=== PATIENT | male | born 1945 | race Caucasian/White ===

== ENCOUNTER 2017-10-23 15:22 | Emergency (ER) | payer MEDICARE ==
[~2017-10-23] VITALS: Wt 79.8 kg
[~2017-10-23 15:22] MED LIST: ASPIR 8181 MG PO; ASPIRIN81 M1 PO; BALANCED B-501 EACH PO; BIOTIN1000 MCG PO; CLARITIN10 MG PO; DIOVAN HCT 25 M1 TA2 PO; KLOR-CON 88 MEQ PO; METOPROLOL25 MG PO; MILK THISTLE PO; MILK THISTLE175 M1 PO; MILK THISTLE500 MG PO; PANTOPRAZOLE SO40 MG PO; PREVACID PO; PRILOSEC20 M1 PO; QUALAQUIN324 MG PO; QUININE SULFAT300 MG PO; SIMVASTATIN20 MG PO; SINGULAIR10 MG PO; [UNRECOGNIZED DRUG - OTHER] PO; [UNRECOGNIZED DRUG - OTHER] PO
[2017-10-23 16:05] LABS: BASO % 0.7 % (0.0-1.0); EOS # 0.1 10*3/uL (0.0-0.4); EOS % 2.4 % (1.0-4.0); HEMATOCRIT 39.9 % (42.0-52.0); HEMOGLOBIN 13.3 g/dl (14.0-18.0); LYMPH # 0.6 10*3/uL (1.3-4.4); LYMPH % 11.6 % (27.0-41.0); MEAN CELL VOLUME 85.8 fl (80.0-94.0); MEAN CORPUSCULAR HGB 28.6 pg (27.0-31.0); MEAN CORPUSCULAR HGB CONC 33.3 g/dl (33.0-37.0); MEAN PLATELET VOLUME 9.5 fl (9.6-12.3); MONO # 0.4 10*3/uL (0.1-1.0); MONO % 8.1 % (3.0-9.0); NEUT # 4.2 10*3/uL (2.3-7.9); NEUT % 76.5 % (47.0-73.0); PLATELET COUNT AUTOMATED 175 10*3/uL (130-400); RED BLOOD COUNT 4.65 10*6/uL (4.50-5.90); RED CELL DISTRI WIDTH 14.6 % (0-14.5); WHITE BLOOD COUNT 5.4 10*3/uL (4.8-10.8)
[2017-10-23 16:14] LABS: ACT PARTIAL THROMBO TIME 24.3 SECONDS (20.8-31.5)
[2017-10-23 16:23] LABS: ALKALINE PHOSPHATASE 90 U/L (45-117); BUN 26 mg/dl (7-24); CHLORIDE 102 mmol/L (98-107); CREATININE 1.52 mg/dL (0.70-1.30); LIPASE 165 U/L (73-393); POTASSIUM 4.1 mmol/L (3.5-5.1); SGOT/AST 32 IU/L (3-35); SGPT/ALT 39 U/L (12-78); SODIUM 135 mmol/L (136-145); TOTAL PROTEIN 6.9 gm/dL (6.4-8.2)
[2017-10-23 16:29] LABS: TROPONIN I < 0.015 ng/ml (<0.045)
[2017-10-23 17:18] LABS: BILIRUBIN NEGATIVE (NEGATIVE); BLOOD NEGATIVE (NEGATIVE); CLARITY CLEAR (CLEAR); COLOR YELLOW (YELLOW); GLUCOSE NEGATIVE (NEGATIVE); KETONE NEGATIVE (NEGATIVE); LEUKO ESTERASE NEGATIVE (NEGATIVE); NITRITE NEGATIVE (NEGATIVE); PH 6.5 (5.0-9.0); SPECIFIC GRAVITY 1.015 (1.005-1.030)
[2017-10-23 17:36] LABS: BACTERIA TRACE; EPITHELIAL CELLS 0-2; MUCOUS 1+; RBC 0-2 rbc/hpf (0-2)
== END 2017-10-23 18:20 | disposition home or self-care (01) ==
LOC: ED 15:22
PROVIDERS: Emergency Medicine
DX: R42 Dizziness and giddiness (principal); T50.905A Adverse effect of unspecified drugs, medicaments and biological substances, initial encounter; M54.9 Dorsalgia, unspecified; I10 Essential (primary) hypertension; Z88.6 Allergy status to analgesic agent; Z79.899 Other long term (current) drug therapy; Z79.82 Long term (current) use of aspirin; Y92.89 Other specified places as the place of occurrence of the external cause

== ENCOUNTER → 2018-01-19 | Outpatient (CLI) | payer MEDICARE ==
[2018-01-19 09:48] LABS: CHOLESTEROL 111 mg/dL (<200); HDL CHOLESTEROL 34 mg/dl (40-60); LDL CHOLESTEROL 66 mg/dL (9-159); TRIGLYCERIDES 54 mg/dl (<150); VLDL CHOLESTEROL 11 mg/dL (6-40)
== END | disposition home or self-care (01) ==
LOC: LAB 08:25
PROVIDERS: Family Medicine
DX: Z13.220 Encounter for screening for lipoid disorders (principal); Z79.899 Other long term (current) drug therapy

== ENCOUNTER 2019-05-11 22:04 | Inpatient (IN) | payer MEDICARE ==
[~2019-05-11] VITALS: Ht 172.7 cm; Wt 83.3 kg
[~2019-05-11 22:04] MED LIST changes: +ATIVAN1 MG PO; +CYCLOBENZAPRINE10 MG PO; +KLOR-CON 88 ME1 PO; -KLOR-CON 88 MEQ PO; +LOSARTAN POTASS25 M1 PO; +NEXAVAR200 M1 PO; +PROCHLORPERAZIN10 MG PO; +TAMSULOSIN HCL0.4 MG PO
[2019-05-11 22:05] VITALS: BP 159/76
[2019-05-11 23:28] LABS: ALBUMIN 2.9 gm/dl (3.1-4.5); ALKALINE PHOSPHATASE 139 U/L (45-117); BUN 20 mg/dl (7-24); CHLORIDE 103 mmol/L (98-107); CREATININE 1.28 mg/dL (0.70-1.30); LIPASE 164 U/L (73-393); POTASSIUM 4.2 mmol/L (3.5-5.1); SGOT/AST 50 IU/L (3-35); SGPT/ALT 66 U/L (12-78); SODIUM 135 mmol/L (136-145); TOTAL PROTEIN 6.2 gm/dL (6.4-8.2)
[2019-05-11 23:30] LABS: TROPONIN I < 0.015 ng/ml (<0.045)
[2019-05-11 23:34] LABS: EOS % 0.5 % (1.0-4.0); HEMOGLOBIN 11.6 g/dl (14.0-18.0); LYMPH # 0.3 10*3/uL (1.3-4.4); LYMPH % 12.1 % (27.0-41.0); MEAN CORPUSCULAR HGB 28.4 pg (27.0-31.0); MEAN CORPUSCULAR HGB CONC 32.2 g/dl (33.0-37.0); MEAN PLATELET VOLUME 10.7 fl (9.6-12.3); MONO # 0.4 10*3/uL (0.1-1.0); MONO % 19.5 % (3.0-9.0); NEUT # 1.5 10*3/uL (2.3-7.9); NEUT % 67.4 % (47.0-73.0); PLATELET COUNT AUTOMATED 59 10*3/uL (130-400); RED BLOOD COUNT 4.09 10*6/uL (4.50-5.90); RED CELL DISTRI WIDTH 15.6 % (0-14.5); WHITE BLOOD COUNT 2.2 10*3/uL (4.8-10.8)
[2019-05-12] VITALS (13 sets, daily range): BP systolic 111–168; BP diastolic 47–73
--- NOTE | 2019-05-12 00:29 | NUR ---
PT STATES NO PAIN AT REST, "VARIES WITH MOVEMENT"
[2019-05-12 00:30] LABS: BILIRUBIN NEGATIVE (NEGATIVE); BLOOD NEGATIVE (NEGATIVE); CLARITY CLEAR (CLEAR); COLOR YELLOW (YELLOW); GLUCOSE NEGATIVE (NEGATIVE); KETONE 1+ (NEGATIVE); LEUKO ESTERASE NEGATIVE (NEGATIVE); NITRITE NEGATIVE (NEGATIVE)
[2019-05-12 00:56] LABS: RBC 0-2 rbc/hpf (0-2); WBC 0-2 wbc/hpf (0-5)
--- NOTE | 2019-05-12 01:01 | NUR ---
DR SPOKE WITH PATIENT DISCUSSING PLAN OF CARE
--- NOTE | 2019-05-12 04:05 | NUR ---
Time: 404 A 74 year old MALE admitted to 4E under services of VALERIA HUGHES DO. Pt. arrived via stretcher from ER. Chief complaint: ABDOMINAL PAIN. DEREJE MORIN
[2019-05-12] MEDS ORDERED: COZAAR50 M1 PO (04:16)
[2019-05-12] MEDS ORDERED: ONDANSETRON HYDR4 MG PO (04:20)
[2019-05-12] MEDS ORDERED: AZELASTINE137 MCG/0. NAS (04:22)
[2019-05-12] MEDS ORDERED: LEVOTHYROXINE50 MCG PO (04:23)
[2019-05-12] MEDS ORDERED: MONTELUKAST SOD10 MG PO (04:24)
--- NOTE | 2019-05-12 04:24 | NUR ---
NOTIFIED OF PATIENT'S C/O NAUSEA DESPITE IV ZOFRAN GIVEN AT 0330. NEW ORDERS TO FOLLOW FOR PHENERGAN
[2019-05-12] MEDS ORDERED: LOSARTAN POTASS50 M1 PO (04:28)
--- NOTE | 2019-05-12 04:56 | NUR ---
IV PHENERGAN INFUSION INITIATED VIA INFUSION PUMP FOR C/O NAUSEA WITHOUT RELIEF FROM ZOFRAN. WILL MONITOR EFFECTIVENESS. CALL LIGHT IN REACH.
--- NOTE | 2019-05-12 09:00 | NUR ---
Funeral Service Manager in to talk to patient. Patient states lives at home with . There are few steps in the home. Physician: jessica cuellar Pharmacy:[facility] Home health services: none Patient's level of ADLs: INDEPENDENT Patient has working utilities: all working DME: none Follow-up physician's appointment after d/c: will be made by hospitalist nurse director upon discharge Does patient want to access PORTAL?: no Discharge plan discussed with patient, present, he states he lives at home with , he is independent in adls and ambulation, drives, works, he states he will return home when medically stable, patient also states he has been receiving chemo on a weekly basis. ANAMIKA TOMLINSON
--- NOTE | 2019-05-12 10:50 | NUR ---
MEDICATED WITH PRN MORPHINE PER ORDER AND REQUEST FOR C/O RIB PAIN BILATERALLY.
--- NOTE | 2019-05-12 19:32 | NUR ---
MEDICATED WITH MORPHINE FOR COMPLAINTS OF ABDOMINAL PAIN. RATES PAIN A 5 ON A PAIN SCALE OF 1-10
--- NOTE | 2019-05-12 20:16 | NUR ---
IV ABX INFUSION COMPLETE. MEDIPORT FLUSHED WITH NSS. SWAB CAP APPLIED. PT STATES EARLIER MORPHINE EFFECTIVE. PT RATES PAIN 3/10 WHILE LAYING DOWN. PAIN DOES WORSEN WITH MOVEMENT.
--- NOTE | 2019-05-12 20:50 | NUR ---
NOTIFIED OF PT'S REQUEST FOR FLOMAX, WHICH HE TAKES AT HOME. NEW ORDER RECEIVED.
--- NOTE | 2019-05-12 21:36 | NUR ---
PO FLOMAX GIVEN. PT VOICES NO COMPLAINTS/NEEDS AT THIS TIME. O2 IN USE VIA 2L NC.
[2019-05-13] VITALS: BP 109/57
--- NOTE | 2019-05-13 02:04 | NUR ---
PT STATES EARLIER MEDICATIONS EFFECTIVE. WILL MONITOR. CALL LIGHT IN REACH.
[2019-05-13 03:20] VITALS: BP 116/63
--- NOTE | 2019-05-13 03:20 | NUR ---
NOTIFIED OF TEMP 100.2 ORALLY. NEW ORDERS TO FOLLOW.
--- NOTE | 2019-05-13 03:50 | NUR ---
PO MOTRIN ADMINISTERED PER ORDER FOR TEMP OF 100.2. PT FOUND WITH O2 OUT OF NOSE. POX 97% ON ROOM AIR. PT WANTS TO KEEP OXYGEN OFF. WILL RECHECK POX AND TEMP SHORTLY.
[2019-05-13 07:03] LABS: EOS # 0.1 10*3/uL (0.0-0.4); EOS % 4.8 % (1.0-4.0); HEMATOCRIT 32.3 % (42.0-52.0); HEMOGLOBIN 10.5 g/dl (14.0-18.0); LYMPH # 0.6 10*3/uL (1.3-4.4); LYMPH % 27.9 % (27.0-41.0); MEAN CELL VOLUME 88.7 fl (80.0-94.0); MEAN CORPUSCULAR HGB 28.8 pg (27.0-31.0); MEAN CORPUSCULAR HGB CONC 32.5 g/dl (33.0-37.0); MEAN PLATELET VOLUME 9.7 fl (9.6-12.3); MONO # 0.8 10*3/uL (0.1-1.0); MONO % 39.4 % (3.0-9.0); NEUT # 0.6 10*3/uL (2.3-7.9); NEUT % 26.9 % (47.0-73.0); PLATELET COUNT AUTOMATED 51 10*3/uL (130-400); RED BLOOD COUNT 3.64 10*6/uL (4.50-5.90); RED CELL DISTRI WIDTH 16.2 % (0-14.5); WHITE BLOOD COUNT 2.1 10*3/uL (4.8-10.8)
[2019-05-13 07:33] LABS: CREATININE 1.51 mg/dL (0.70-1.30); PHOSPHOROUS 2.1 mg/dL (2.5-4.9); POTASSIUM 3.8 mmol/L (3.5-5.1)
[2019-05-13 07:45] LABS: ATYPICAL LYMPHS 4 % (0-0); BASOPHILS 1 % (0-1); TOTAL CELLS COUNTED 100 #CELLS
[2019-05-13 07:46] LABS: PLATELET SUFFICIENCY LOW (NORMAL)
[2019-05-13 08:00] VITALS: BP 136/55
--- NOTE | 2019-05-13 09:00 | NUR ---
case management visits with patient, he was sitting in a chair in his room, stated he would be returning home when medically stable and denies any home needs, case management will follow
[2019-05-13 12:00] VITALS: BP 143/51
[2019-05-13 16:00] VITALS: BP 130/67
[2019-05-13 20:00] VITALS: BP 110/66
[2019-05-14] VITALS: BP 117/72; BP 117/97
--- NOTE | 2019-05-14 04:31 | NUR ---
PATIENT RESTING WITH EYES CLOSED SITTING UP IN CHAIR. RESPIRATIONS EASY AND UNLABORED ON 2LNC. CALL LIGHT WITHIN REACH. WILL MONITOR.
[2019-05-14 05:40] LABS: HEMATOCRIT 29.1 % (42.0-52.0); HEMOGLOBIN 9.7 g/dl (14.0-18.0); MEAN CELL VOLUME 87.7 fl (80.0-94.0); MEAN CORPUSCULAR HGB 29.2 pg (27.0-31.0); MEAN CORPUSCULAR HGB CONC 33.3 g/dl (33.0-37.0); MEAN PLATELET VOLUME 10.4 fl (9.6-12.3); PLATELET COUNT AUTOMATED 46 10*3/uL (130-400); RED BLOOD COUNT 3.32 10*6/uL (4.50-5.90); RED CELL DISTRI WIDTH 15.9 % (0-14.5)
[2019-05-14 05:42] LABS: WHITE BLOOD COUNT 1.5 10*3/uL (4.8-10.8)
--- NOTE | 2019-05-14 05:45 | NUR ---
DR NICHOLS CALLED WITH CRITICAL WBC. PATIENT TO BE PLACED IN REVERSE ISOLATION AT THIS TIME.
[2019-05-14 05:54] LABS: ALBUMIN 2.4 gm/dl (3.1-4.5); ALKALINE PHOSPHATASE 145 U/L (45-117); BUN 17 mg/dl (7-24); CHLORIDE 107 mmol/L (98-107); CREATININE 1.34 mg/dL (0.70-1.30); POTASSIUM 3.4 mmol/L (3.5-5.1); SGOT/AST 45 IU/L (3-35); SGPT/ALT 46 U/L (12-78); SODIUM 139 mmol/L (136-145); TOTAL PROTEIN 5.4 gm/dL (6.4-8.2)
[2019-05-14 06:15] LABS: INTERNATIONAL NORM RATIO 1.1 (2.0-3.5); OVALOCYTES FEW; PLATELET SUFFICIENCY LOW (NORMAL); POLYCHROMASIA SLIGHT; TOTAL CELLS COUNTED 100 #CELLS
--- NOTE | 2019-05-14 07:41 | NUR ---
MADE AWARE THAT PATIENT IS HAVING MULTIPLE EPISODE OF DIARRHEA AND AT THIS POINT IN TIME HE STATES THAT ITS JUST WATER AND IS REQUESTING IMMODIUM. DR STATED SHE WILL PLACE ORDERS.
[2019-05-14 08:00] VITALS: BP 122/78; BP 132/55
--- NOTE | 2019-05-14 09:00 | NUR ---
case management visits with patient, patient will return to home when medically stable and denies any home needs
[2019-05-14 12:00] VITALS: BP 126/56
--- NOTE | 2019-05-14 12:19 | NUR ---
MADE AWARE OF CRITICAL FINDINGS OF MICRO PERFORATION TO SIGMOND COLON AND 3 LOCULES. STATED OK.
--- NOTE | 2019-05-14 13:05 | NUR ---
IN ROOM DISCUSSING TRANFER WITH PATIENT, STATES THAT IT IS /JAVY REQUEST, DR. PALAFOX WAS AWARE OF CONSULT.
--- NOTE | 2019-05-14 13:10 | NUR ---
AWARE THAT PATIENT IS HAVING EPISODE OF BM [id number] PER PATIENT, LIQUID. STATES TO PLACE NS CONT @100CC/HR.
--- NOTE | 2019-05-14 13:22 | NUR ---
PATIENT MEDICATED WITH MORPHINE FOR C/O 12/22 WILL MONITOR
[2019-05-14 16:00] VITALS: BP 119/65
--- NOTE | 2019-05-14 16:20 | NUR ---
PATIENT GIVEN X1 DOSE OF IMMODIUM FOR C/O CONSTANT DIARRHEA. WILL MONITOR
[2019-05-14 20:00] VITALS: BP 154/45
--- NOTE | 2019-05-14 20:23 | NUR ---
PATIENT MEDICATED WITH MORPHINE FOR ABD PAIN 6/10. WILL MONITOR
--- NOTE | 2019-05-14 20:54 | NUR ---
NURSE TO NURSE REPORT GIVEN TO MARCELO AT [facility].
--- NOTE | 2019-05-14 21:23 | NUR ---
MORPHINE EFFECTIVE FOR PAIN
--- NOTE | 2019-05-14 23:40 | NUR ---
PATIENT TAKEN OFF THE FLOOR BY ASI VIA STRETCHER.
== END 2019-05-14 23:40 | disposition short-term general hospital (02) | DRG 871 ==
LOC: ED 22:04 → EDHOLD 05-12 03:00 → 4E 05-12 03:00
PROVIDERS: Emergency Medicine; Student in an Organized Health Care Education/Training Program; ADMIT Internal Medicine
DX: A41.9 Sepsis, unspecified organism (principal); D61.810 Antineoplastic chemotherapy induced pancytopenia; C22.0 Liver cell carcinoma; E87.1 Hypo-osmolality and hyponatremia; E44.0 Moderate protein-calorie malnutrition; K57.20 Diverticulitis of large intestine with perforation and abscess without bleeding; R74.8 Abnormal levels of other serum enzymes; R74.0 Nonspecific elevation of levels of transaminase and lactic acid dehydrogenase [LDH]; N18.3 Chronic kidney disease, stage 3 (moderate); E77.8 Other disorders of glycoprotein metabolism; F41.9 Anxiety disorder, unspecified; R65.20 Severe sepsis without septic shock; I25.10 Atherosclerotic heart disease of native coronary artery without angina pectoris; R16.1 Splenomegaly, not elsewhere classified; K74.60 Unspecified cirrhosis of liver; B19.20 Unspecified viral hepatitis C without hepatic coma; E02 Subclinical iodine-deficiency hypothyroidism; E66.3 Overweight; R19.7 Diarrhea, unspecified; E83.51 Hypocalcemia; R73.9 Hyperglycemia, unspecified; I12.9 Hypertensive chronic kidney disease with stage 1 through stage 4 chronic kidney disease, or unspecified chronic kidney disease; K86.89 Other specified diseases of pancreas; T45.1X5A Adverse effect of antineoplastic and immunosuppressive drugs, initial encounter; Y92.89 Other specified places as the place of occurrence of the external cause; Z88.8 Allergy status to other drugs, medicaments and biological substances; Z88.5 Allergy status to narcotic agent; Z95.1 Presence of aortocoronary bypass graft; Z87.891 Personal history of nicotine dependence; Z82.49 Family history of ischemic heart disease and other diseases of the circulatory system; Z82.3 Family history of stroke; Z83.3 Family history of diabetes mellitus; Z82.0 Family history of epilepsy and other diseases of the nervous system; Z88.6 Allergy status to analgesic agent; Z79.899 Other long term (current) drug therapy; Z68.27 Body mass index [BMI] 27.0-27.9, adult

== ENCOUNTER 2019-09-20 15:53 | Emergency (ER) | payer MEDICARE ==
[~2019-09-20] VITALS: Ht 172.7 cm; Wt 78.9 kg
[~2019-09-20 15:53] MED LIST changes: +AZELASTINE137 MCG/0. NAS; +COZAAR50 M1 PO; +LEVOTHYROXINE50 MCG PO; +LOSARTAN POTASS50 M1 PO; +MONTELUKAST SOD10 MG PO; +ONDANSETRON HYDR4 MG PO
== END 2019-09-20 16:37 | disposition home or self-care (01) ==
LOC: ED 15:53
DX: T82.534A Leakage of infusion catheter, initial encounter (principal); C22.8 Malignant neoplasm of liver, primary, unspecified as to type; I10 Essential (primary) hypertension; I25.10 Atherosclerotic heart disease of native coronary artery without angina pectoris; K21.9 Gastro-esophageal reflux disease without esophagitis; Z85.118 Personal history of other malignant neoplasm of bronchus and lung; Z95.1 Presence of aortocoronary bypass graft; Z79.899 Other long term (current) drug therapy; Z79.82 Long term (current) use of aspirin; Z79.2 Long term (current) use of antibiotics; Z92.21 Personal history of antineoplastic chemotherapy; Z88.8 Allergy status to other drugs, medicaments and biological substances; Z88.5 Allergy status to narcotic agent; Y84.8 Other medical procedures as the cause of abnormal reaction of the patient, or of later complication, without mention of misadventure at the time of the procedure; Y92.89 Other specified places as the place of occurrence of the external cause

== ENCOUNTER 2021-07-24 11:31 | Inpatient (IN) | payer MEDICARE ==
[~2021-07-24] VITALS: Ht 172.7 cm; Wt 58.1 kg
[2021-07-24 11:53] VITALS: BP 154/67
[2021-07-24 11:58] LABS: BASO % 0.2 % (0.0-1.0); EOS % 0.1 % (1.0-4.0); HEMATOCRIT 40.1 % (42.0-52.0); LYMPH # 0.9 10*3/uL (1.3-4.4); LYMPH % 8.7 % (27.0-41.0); MEAN CELL VOLUME 95.2 fl (80.0-94.0); MEAN CORPUSCULAR HGB 29.2 pg (27.0-31.0); MEAN CORPUSCULAR HGB CONC 30.7 g/dl (33.0-37.0); MEAN PLATELET VOLUME 9.5 fl (9.6-12.3); MONO # 0.8 10*3/uL (0.1-1.0); MONO % 7.4 % (3.0-9.0); NEUT # 8.7 10*3/uL (2.3-7.9); NUCLEATED RED BLOOD CELL 0.1 10*3/uL (0.0-0.0); NUCLEATED RED BLOOD CELL 0.5 % (0.0-0.0); PLATELET COUNT AUTOMATED 124 10*3/uL (130-400); RED BLOOD COUNT 4.21 10*6/uL (4.50-5.90); RED CELL DISTRI WIDTH 18.1 % (0-14.5); WHITE BLOOD COUNT 10.5 10*3/uL (4.8-10.8)
[2021-07-24 12:09] LABS: ACT PARTIAL THROMBO TIME 25.2 SECONDS (20.0-32.1); INTERNATIONAL NORM RATIO 1.2 (2.0-3.5)
[2021-07-24 12:14] LABS: ALBUMIN 2.2 gm/dl (3.1-4.5); ALKALINE PHOSPHATASE 235 U/L (45-117); BUN 12 mg/dl (7-24); CHLORIDE 114 mmol/L (98-107); CREATININE 1.02 mg/dL (0.70-1.30); POTASSIUM 4.4 mmol/L (3.5-5.1); SGOT/AST 94 IU/L (3-35); SGPT/ALT 103 U/L (12-78); SODIUM 145 mmol/L (136-145); TOTAL PROTEIN 5.5 gm/dL (6.4-8.2)
[2021-07-24 12:16] LABS: ABG BASE EXCESS -3.6 mmol/L (-2.0-2.0); ARTERIAL BLOOD GAS PH 7.466 (7.35-7.45); ARTERIAL BLOOD GAS PO2 59.8 (80-90)
[2021-07-24 12:23] VITALS: BP 148/60
[2021-07-24 13:40] VITALS: BP 128/51
[2021-07-24] MEDS ORDERED: LOSARTAN POTAS100 M1 PO (14:15)
[2021-07-24 20:00] VITALS: BP 125/53
[2021-07-24 21:00] VITALS: BP 127/52
[2021-07-24 22:00] VITALS: BP 99/40
[2021-07-25] VITALS (8 sets, daily range): BP systolic 106–129; BP diastolic 45–69
[2021-07-25 04:35] LABS: HEMATOCRIT 34.6 % (42.0-52.0); LYMPH # 0.4 10*3/uL (1.3-4.4); LYMPH % 14.1 % (27.0-41.0); MEAN CELL VOLUME 95.3 fl (80.0-94.0); MEAN CORPUSCULAR HGB 29.2 pg (27.0-31.0); MEAN CORPUSCULAR HGB CONC 30.6 g/dl (33.0-37.0); MEAN PLATELET VOLUME 11.6 fl (9.6-12.3); MONO # 0.2 10*3/uL (0.1-1.0); MONO % 5.2 % (3.0-9.0); NEUT # 2.4 10*3/uL (2.3-7.9); RED BLOOD COUNT 3.63 10*6/uL (4.50-5.90); RED CELL DISTRI WIDTH 17.5 % (0-14.5); WHITE BLOOD COUNT 3.1 10*3/uL (4.8-10.8)
[2021-07-25 04:56] LABS: PLATELET COUNT AUTOMATED 65 10*3/uL (130-400)
[2021-07-25 04:58] LABS: ALBUMIN 1.8 gm/dl (3.1-4.5); ALKALINE PHOSPHATASE 191 U/L (45-117); BUN 17 mg/dl (7-24); CHLORIDE 109 mmol/L (98-107); CREATININE 0.89 mg/dL (0.70-1.30); POTASSIUM 3.8 mmol/L (3.5-5.1); SGOT/AST 77 IU/L (3-35); SGPT/ALT 84 U/L (12-78); SODIUM 142 mmol/L (136-145); TOTAL PROTEIN 4.8 gm/dL (6.4-8.2)
[2021-07-25 05:03] LABS: FREE T4 0.69 ng/dl (0.76-1.46)
[2021-07-25 06:23] LABS: ACT PARTIAL THROMBO TIME 35.9 SECONDS (20.0-32.1); INTERNATIONAL NORM RATIO 1.2 (2.0-3.5)
[2021-07-25 07:01] LABS: VITAMIN D, 25-HYDROXY 45.5 ng/mL (30-100)
[2021-07-26] VITALS (27 sets, daily range): BP systolic 89–146; BP diastolic 25–66
[2021-07-26 04:26] LABS: LYMPH # 0.3 10*3/uL (1.3-4.4); LYMPH % 8.6 % (27.0-41.0); MEAN CELL VOLUME 92.4 fl (80.0-94.0); MEAN CORPUSCULAR HGB 28.8 pg (27.0-31.0); MEAN CORPUSCULAR HGB CONC 31.2 g/dl (33.0-37.0); MEAN PLATELET VOLUME 11.7 fl (9.6-12.3); MONO # 0.2 10*3/uL (0.1-1.0); MONO % 4.7 % (3.0-9.0); NEUT # 3.1 10*3/uL (2.3-7.9); NEUT % 86.1 % (47.0-73.0); PLATELET COUNT AUTOMATED 65 10*3/uL (130-400); RED BLOOD COUNT 3.68 10*6/uL (4.50-5.90); RED CELL DISTRI WIDTH 16.9 % (0-14.5); WHITE BLOOD COUNT 3.6 10*3/uL (4.8-10.8)
[2021-07-26 04:47] LABS: ALBUMIN 1.8 gm/dl (3.1-4.5); ALKALINE PHOSPHATASE 178 U/L (45-117); CHLORIDE 107 mmol/L (98-107); CREATININE 1.03 mg/dL (0.70-1.30); POTASSIUM 3.4 mmol/L (3.5-5.1); SGOT/AST 67 IU/L (3-35); SODIUM 143 mmol/L (136-145); TOTAL PROTEIN 4.6 gm/dL (6.4-8.2)
[2021-07-26 04:48] LABS: BUN 27 mg/dl (7-24); SGPT/ALT 77 U/L (12-78)
[2021-07-26 14:22] LABS: ABG BASE EXCESS -0.7 mmol/L (-2.0-2.0); ARTERIAL BLOOD GAS PH 7.484 (7.35-7.45); ARTERIAL BLOOD GAS PO2 57.4 (80-90)
[2021-07-27] VITALS (92 sets, daily range): BP systolic 80–162; BP diastolic 37–638
[2021-07-27 06:26] LABS: HEMATOCRIT 33.8 % (42.0-52.0); MEAN CELL VOLUME 91.6 fl (80.0-94.0); MEAN CORPUSCULAR HGB 28.7 pg (27.0-31.0); MEAN CORPUSCULAR HGB CONC 31.4 g/dl (33.0-37.0); MEAN PLATELET VOLUME 10.8 fl (9.6-12.3); PLATELET COUNT AUTOMATED 75 10*3/uL (130-400); RED BLOOD COUNT 3.69 10*6/uL (4.50-5.90); RED CELL DISTRI WIDTH 16.7 % (0-14.5)
[2021-07-27 06:38] LABS: ALBUMIN 1.9 gm/dl (3.1-4.5); ALKALINE PHOSPHATASE 185 U/L (45-117); CHLORIDE 109 mmol/L (98-107); CREATININE 1.37 mg/dL (0.70-1.30); POTASSIUM 3.5 mmol/L (3.5-5.1); SGOT/AST 64 IU/L (3-35); SGPT/ALT 72 U/L (12-78); SODIUM 142 mmol/L (136-145); TOTAL PROTEIN 4.8 gm/dL (6.4-8.2)
[2021-07-27 06:42] LABS: BUN 39 mg/dl (7-24)
[2021-07-27 08:01] LABS: ARTERIAL BLOOD GAS PH 7.496 (7.35-7.45); ARTERIAL BLOOD GAS PO2 40.3 (80-90)
[2021-07-27 08:52] LABS: PLATELET SUFFICIENCY LOW (NORMAL); TOTAL CELLS COUNTED 100 #CELLS
[2021-07-27 11:27] LABS: ABG BASE EXCESS -0.7 mmol/L (-2.0-2.0); ARTERIAL BLOOD GAS PH 7.47 (7.35-7.45); ARTERIAL BLOOD GAS PO2 81.5 (80-90)
[2021-07-28] VITALS (61 sets, daily range): BP systolic 65–161; BP diastolic 18–92
[2021-07-28 05:58] LABS: BASO % 0.2 % (0.0-1.0); HEMATOCRIT 38.2 % (42.0-52.0); LYMPH # 0.4 10*3/uL (1.3-4.4); MEAN CELL VOLUME 93.2 fl (80.0-94.0); MEAN CORPUSCULAR HGB CONC 31.2 g/dl (33.0-37.0); MONO # 0.3 10*3/uL (0.1-1.0); MONO % 5.5 % (3.0-9.0); NEUT # 4.5 10*3/uL (2.3-7.9); NEUT % 85.7 % (47.0-73.0); PLATELET COUNT AUTOMATED 85 10*3/uL (130-400); RED CELL DISTRI WIDTH 16.6 % (0-14.5); WHITE BLOOD COUNT 5.2 10*3/uL (4.8-10.8)
[2021-07-28 08:18] LABS: ALBUMIN 1.9 gm/dl (3.1-4.5); CREATININE 1.43 mg/dL (0.70-1.30); POTASSIUM 3.5 mmol/L (3.5-5.1); TOTAL PROTEIN 4.5 gm/dL (6.4-8.2)
== END 2021-07-28 18:19 | disposition hospice, inpatient (51) | DRG 871 ==
LOC: ED 11:31 → EDHOLD 14:00 → ICCU 07-26 08:06
PROVIDERS: Emergency Medicine; Hospitalist; Internal Medicine Hematology & Oncology; Nurse Practitioner Family; ADMIT Internal Medicine; ATTEND Internal Medicine
PROC: 5A09457 Assistance with Respiratory Ventilation, 24-96 Consecutive Hours, Continuous Positive Airway Pressure (ICD-10-PCS; principal; 2021-07-26)
DX: A41.9 Sepsis, unspecified organism (principal); U07.1 COVID-19; E43 Unspecified severe protein-calorie malnutrition; J96.01 Acute respiratory failure with hypoxia; R65.21 Severe sepsis with septic shock; G93.41 Metabolic encephalopathy; E87.2 Acidosis; J44.1 Chronic obstructive pulmonary disease with (acute) exacerbation; C22.0 Liver cell carcinoma; D61.818 Other pancytopenia; Z68.1 Body mass index [BMI] 19.9 or less, adult; Z66 Do not resuscitate; D69.6 Thrombocytopenia, unspecified; D53.9 Nutritional anemia, unspecified; I11.0 Hypertensive heart disease with heart failure; Z51.5 Encounter for palliative care; F41.9 Anxiety disorder, unspecified; I25.10 Atherosclerotic heart disease of native coronary artery without angina pectoris; E80.6 Other disorders of bilirubin metabolism; K74.60 Unspecified cirrhosis of liver; I50.9 Heart failure, unspecified; E03.9 Hypothyroidism, unspecified; Z95.1 Presence of aortocoronary bypass graft; Z82.49 Family history of ischemic heart disease and other diseases of the circulatory system; Z82.0 Family history of epilepsy and other diseases of the nervous system; Z88.8 Allergy status to other drugs, medicaments and biological substances; Z88.5 Allergy status to narcotic agent; Z79.82 Long term (current) use of aspirin; Z79.899 Other long term (current) drug therapy

== ENCOUNTER 2021-07-28 18:31 | Inpatient (IN) | payer OTHER ==
[~2021-07-28] VITALS: Ht 172.7 cm; Wt 58.1 kg
[~2021-07-28 18:31] MED LIST changes: +LOSARTAN POTAS100 M1 PO
[2021-07-28 18:45] VITALS: BP 116/50
[2021-07-28 20:00] VITALS: BP 141/56
[2021-07-29 08:00] VITALS: BP 114/69
[2021-07-29 12:00] VITALS: BP 108/46
[2021-07-29 16:00] VITALS: BP 121/44
[2021-07-29 20:00] VITALS: BP 127/42
[2021-07-30 08:00] VITALS: BP 61/26
== END 2021-07-30 09:12 | DRG 871 ==
LOC: ICCU 18:31 → 4E 21:09
PROVIDERS: ADMIT Internal Medicine; ATTEND Internal Medicine
PROC: 5A0955A Assistance with Respiratory Ventilation, Greater than 96 Consecutive Hours, High Flow/Velocity Cannula (ICD-10-PCS; principal; 2021-07-28)
DX: A41.9 Sepsis, unspecified organism (principal); U07.1 COVID-19; J96.90 Respiratory failure, unspecified, unspecified whether with hypoxia or hypercapnia; E43 Unspecified severe protein-calorie malnutrition; E87.2 Acidosis; J44.1 Chronic obstructive pulmonary disease with (acute) exacerbation; Z51.5 Encounter for palliative care; D69.6 Thrombocytopenia, unspecified; E80.6 Other disorders of bilirubin metabolism; D53.9 Nutritional anemia, unspecified; B19.20 Unspecified viral hepatitis C without hepatic coma; Z66 Do not resuscitate; K74.60 Unspecified cirrhosis of liver; E55.9 Vitamin D deficiency, unspecified; F41.9 Anxiety disorder, unspecified; I25.10 Atherosclerotic heart disease of native coronary artery without angina pectoris; E03.9 Hypothyroidism, unspecified; I50.9 Heart failure, unspecified; I11.0 Hypertensive heart disease with heart failure